=== PATIENT | female | born 1995 | race Asian ===

== ENCOUNTER → 2017-07-23 | Outpatient (CLI) | payer BC | END | disposition home or self-care (01) | LOC: C.LABSPEC 13:04 | PROVIDERS: ATTEND Obstetrics & Gynecology | DX: Z11.8 Encounter for screening for other infectious and parasitic diseases (principal); Z11.3 Encounter for screening for infections with a predominantly sexual mode of transmission ==

== ENCOUNTER → 2017-07-23 | Outpatient (CLI) | payer BC | END | disposition home or self-care (01) | LOC: C.PAPS 13:49 | PROVIDERS: ATTEND Obstetrics & Gynecology | DX: Z01.419 Encounter for gynecological examination (general) (routine) without abnormal findings (principal) ==

== ENCOUNTER 2018-02-22 11:20 | Emergency (ER) | payer BC ==
[~2018-02-22] VITALS: Ht 152.4 cm; Wt 52.8 kg
[2018-02-22 11:30] VITALS: TEMP 36.8; Ht 152.4 cm; Wt 52.8 kg
[2018-02-22] MEDS ORDERED: SODIUM CHLORIDE 0.9% 1000ML 1,000 ML IV STA (11:47)
[2018-02-22] MEDS ORDERED: ONDANSETRON INJ 2 MG/ML 2 ML VIAL IV STA (11:47)
--- NOTE | 2018-02-22 11:59 | EMERGENCY ROOM VISIT NOTE ---
History First contact with patient: 11:33 Chief Complaint: ABDOMINAL PAIN Stated Complaint: LOWER ABD PAIN Nursing Triage Summary: PAtient amblatory to triage. "I have been having pretty bad abdominal pain for the last three days" The patient radiates across lower abdomen to back. Patient states she is voiding more often. Patient complains of slight nausea and "I get hot really quickly". History of Present Illness The patient is a 22 year old female who presents to the Emergency Room with complaints of progressively worsening, constant cramping discomfort in the lower abdomen. The patient now reports that it hurts when she bends over or walks. She reports that the pain does go somewhat into the lower back region. The patient reports a prior history of ovarian cysts, but reports that this does feel somewhat different. She denies history of kidney stones or other GI disease. She has had increased urinary frequency without dysuria or hematuria. She denies any significant prior history of urinary tract infection or kidney infection. The patient has had mild nausea without vomiting. She denies fevers or chills. The patient denies , and is currently taking oral contraceptives. She rates her discomfort a 5 out of 10. Review of Systems HEENT: Denies dizziness, visual problems, hearing loss, tinnitus. Denies difficulty swallowing or oral lesions. PULMONARY: Denies cough, shortness of breath, sputum production or hemoptysis. CARDIOVASCULAR: Denies chest pain, palpitations, dyspnea on exertion, orthopnea or peripheral edema. GASTROINTESTINAL: Denies diarrhea, constipation or vomiting, otherwise see HPI. GENITOURINARY: Reports increased urinary frequency, but denies dysuria, hematuria, urgency or nocturia. NEUROLOGIC: Denies history of epilepsy, CVA, TIA or chronic headaches. MUSCULOSKELETAL: Denies history of joint tenderness/swelling. SKIN: Denies rashes or lesions. PSYCHIATRIC: Denies history of depression or mental illness. ENDOCRINE: Denies history of diabetes or thyroid disorders. Past Medical/Surgical History Medical Problems: (1) No significant past medical history Surgical Problems: (1) No history of previous surgery Family History Unremarkable Social History Smoking Status: Never Smoker Alcohol Use: occasionally Marital Status: single Occupation Status: employed Current/Historical Medications Scheduled Ciprofloxacin Hcl (Cipro), 500 MG PO BID Etonogestrel/Ethinyl Estradiol (Nuvaring), 1 EA VAGRING MONTHLY Physical Exam Vital Signs Date Time Temp Pulse Resp B/P (MAP) Pulse Ox O2 Delivery O2 Flow Rate FiO2 02/22/18 16:35 95 20 117/76 97 02/22/18 16:01 84 22 132/84 100 Room Air 02/22/18 15:38 110 02/22/18 15:31 98 Room Air 02/22/18 15:31 98 Room Air 02/22/18 15:19 108 18 139/96 98 Room Air 02/22/18 14:31 92 18 118/65 99 Room Air 02/22/18 12:40 83 16 121/81 98 Room Air 02/22/18 11:30 36.8 84 16 134/86 99 Room Air Physical Exam CONSTITUTIONAL: Healthy and well nourished. Alert and oriented X 3 with positive affect. Patient does not appear acutely ill or toxic, and appears in mild discomfort. HEENT: Normocephalic, atraumatic. Pupils equal, round and reactive. No scleral icterus or conjunctival injection/pallor. NECK: Full active range of motion without discomfort. RESPIRATORY: Clear to auscultation bilaterally with no wheezing, crackles, rhonchi or stridor. CARDIOVASCULAR: Regular rate and rhythm with no murmurs, rubs or gallops. GASTROINTESTINAL: Bowel sounds present in all quadrants. Examination shows notable suprapubic and McBurney's point tenderness. Mildly positive Rovsing sign. Negative heel tap. Negative CVA tenderness. No abdominal rigidity, guarding or rebound. MUSCULOSKELETAL: Full range of motion of all joints without discomfort. INTEGUMENTARY: No rash or other significant dermatologic conditions noted. HEMATOLOGIC: No ecchymosis or petechiae noted. NEUROLOGIC: No focal neurologic deficits noted. Medical Decision & Procedures ER Provider Diagnostic Interpretation: Pelvic ultrasound does not show any evidence for ovarian cyst or other concerning pelvic masses. Radiologist report is as follows: PELVIC COMPLETE NON OB CLINICAL HISTORY: 22 years-old Female presenting with LOWER ABDOMINAL PAIN, , on contraception. TECHNIQUE: Real-time grayscale and color and spectral Doppler ultrasound imaging of the pelvis was performed using a transabdominal probe. COMPARISON: None. FINDINGS: Uterus: Normal. Anteverted. The uterus measures 8.3 x 3.1 x 4.5 cm. Endometrial stripe measures 5 mm in thickness. Endometrium normal-appearing. Cervix normal. Right adnexa: Right ovary normal. Right ovary measures 1.9 x 2.1 x 1.4 cm. Normal color Doppler flow and arterial and venous waveforms within the ovarian parenchyma. Left adnexa: Left ovary normal. Left ovary measures 2.4 x 2.7 x 1.6 cm. Normal color Doppler flow and arterial and venous waveforms within the ovarian parenchyma. Other: No free fluid. IMPRESSION: No significant abnormality identified within the pelvis. Ultrasound of the appendix was unable to visualize the appendix. Radiologist report is as follows: APPENDIX ULTRASOUND CLINICAL HISTORY: 22 years-old Female presenting with LOWER ABDOMINAL PAIN, right lower quadrant pain for 3 days. TECHNIQUE: Real-time grayscale and limited color Doppler ultrasound imaging of the right lower quadrant was performed to evaluate the appendix. COMPARISON: None. FINDINGS: Appendix not visualized. No free fluid or hyperechogenic fat to suggest secondary signs of inflammation. IMPRESSION: Appendix not visualized. This does not exclude the diagnosis of appendicitis. Enhanced CT of the abdomen and pelvis show any acute appendicitis or bowel obstruction. Patient does have thickening of the bladder wall and ureter, suggestive of pyelitis/cystitis. Radiologist report is as follows: ABDOMEN AND PELVIS CT WITH IV AND ORAL CONTRAST CT DOSE: 283.23 mGycm HISTORY: LOWER ABDOMINAL PAIN TECHNIQUE: Multiaxial CT images of the abdomen and pelvis were performed following the use of intravenous and oral contrast. A dose lowering technique was utilized adhering to the principles of ALARA. COMPARISON STUDY: None. FINDINGS: The lung bases are clear. No pneumoperitoneum. No pneumatosis. No fractures within the visualized osseous structures. The liver, gallbladder, spleen, pancreas, and adrenal glands are unremarkable. The right kidney enhances normally. A 4 mm hypodense lesion within the left kidney is too small to characterize. No hydronephrosis. No retroperitoneal lymphadenopathy. The uterus and ovaries are unremarkable. No significant pelvic free fluid. Mild bladder wall thickening. A ring-shaped object in the upper vagina favors a contraceptive device. No bowel wall thickening or obstruction. Normal appendix. There is also mild urothelial thickening within the ureters. IMPRESSION: 1. Mild thickening of the bladder wall as well as mild urothelial thickening within the ureters. This favors a cystitis/pyelitis. Recommend correlation with urinalysis. 2. No bowel wall thickening or obstruction. 3. Normal appendix. Laboratory Results 02/22/18 11:55 Red Blood Count 5.05, Mean Corpuscular Volume 90.9, Mean Corpuscular Hemoglobin 33.3, Mean Corpuscular Hemoglobin Concent 36.6, Mean Platelet Volume 10.1, Neutrophils (%) (Auto) 75.0, Lymphocytes (%) (Auto) 15.5, Monocytes (%) (Auto) 6.1, Eosinophils (%) (Auto) 2.8, Basophils (%) (Auto) 0.4, Neutrophils # (Auto) 7.23, Lymphocytes # (Auto) 1.49, Monocytes # (Auto) 0.59, Eosinophils # (Auto) 0.27, Basophils # (Auto) 0.04 02/22/18 11:55 Test 02/22/18 11:50 02/22/18 11:55 Urine Color YELLOW Urine Appearance CLOUDY (CLEAR) Urine pH 6.5 (4.5-7.5) Urine Specific Coolin 1.012 (1.000-1.030) Urine Protein NEG (NEG) Urine Glucose (UA) NEG (NEG) Urine Ketones NEG (NEG) Urine Occult Blood 1+ (NEG) Urine Nitrite NEG (NEG) Urine Bilirubin NEG (NEG) Urine Urobilinogen NEG (NEG) Urine Leukocyte Esterase LARGE (NEG) Urine WBC (Auto) >30 /hpf (0-5) Urine RBC (Auto) 5-10 /hpf (0-4) Urine Hyaline Casts (Auto) 5-10 /lpf (0-5) Urine Epithelial Cells (Auto) >30 /lpf (0-5) Urine Bacteria (Auto) 2+ (NEG) Urine Test NEG (NEG) White Blood Count 9.64 K/uL (4.8-10.8) Red Blood Count 5.05 M/uL (4.2-5.4) Hemoglobin 16.8 g/dL (12.0-16.0) Hematocrit 45.9 % (37-47) Mean Corpuscular Volume 90.9 fL (80-100) Mean Corpuscular Hemoglobin 33.3 pg (25-34) Mean Corpuscular Hemoglobin Concent 36.6 g/dl (32-36) Platelet Count 244 K/uL (130-400) Mean Platelet Volume 10.1 fL (7.4-10.4) Neutrophils (%) (Auto) 75.0 % Lymphocytes (%) (Auto) 15.5 % Monocytes (%) (Auto) 6.1 % Eosinophils (%) (Auto) 2.8 % Basophils (%) (Auto) 0.4 % Neutrophils # (Auto) 7.23 K/uL (1.4-6.5) Lymphocytes # (Auto) 1.49 K/uL (1.2-3.4) Monocytes # (Auto) 0.59 K/uL (0.11-0.59) Eosinophils # (Auto) 0.27 K/uL (0-0.5) Basophils # (Auto) 0.04 K/uL (0-0.2) RDW Standard Deviation 40.8 fL (36.4-46.3) RDW Coefficient of Variation 12.4 % (11.5-14.5) Immature Granulocyte % (Auto) 0.2 % Immature Granulocyte # (Auto) 0.02 K/uL (0.00-0.02) Anion Gap 9.0 mmol/L (3-11) Est Creatinine Clear Calc Drug Dose 62.3 ml/min Estimated GFR () 91.3 Estimated GFR (Non- 78.8 BUN/Creatinine Ratio 10.6 (10-20) Calcium Level 9.4 mg/dl (8.5-10.1) Total Bilirubin 0.7 mg/dl (0.2-1) Direct Bilirubin 0.2 mg/dl (0-0.2) Aspartate Amino Transf (AST/SGOT) 14 U/L (15-37) Alanine Aminotransferase (ALT/SGPT) 27 U/L (12-78) Alkaline Phosphatase 63 U/L (45-117) Total Protein 8.0 gm/dl (6.4-8.2) Albumin 4.1 gm/dl (3.4-5.0) Lipase 159 U/L (73-393) The above labs were reviewed. CBC, partial renal profile, LFTs and lipase are normal. Urine is negative. Urine collection was contaminated. Urine culture is pending. Medications Administered Medications (Trade) Dose Ordered Sig/Karla Route Start Time Stop Time Status Last Admin Dose Admin Sodium Chloride 1,000 ml @ 999 mls/hr Q1H1M STAT IV 02/22/18 11:47 02/22/18 12:47 DC 02/22/18 12:38 999 MLS/HR Ondansetron HCl (Zofran Inj) 4 mg NOW STAT IV 02/22/18 11:47 02/22/18 12:10 DC 02/22/18 12:38 4 MG Methylprednisolone Sodium Succinate (Solu-Medrol IV) 125 mg NOW STAT IV 02/22/18 15:18 02/22/18 15:20 DC 02/22/18 15:24 125 MG Diphenhydramine HCl (Benadryl Inj) 50 mg NOW STAT IV 02/22/18 15:18 02/22/18 15:20 DC 02/22/18 15:23 50 MG Procedure 1. IV hydration: The patient was administered a normal saline 2. IV medications: Zofran 4 mg IVP. The patient ultimately required additional Benadryl 50 mg and Solu-Medrol 125 mg IVP after having an adverse reaction to IVP dye. ED Course Patient history and physical exam were performed. Nurse's notes were reviewed. Vital signs were reviewed and normal. IV access was established, and labs were drawn. The patient was hydrated with normal saline, and was administered IV Zofran for nausea. Labs were reviewed to show no significant abdomen. Urinalysis was contaminated. Urine is negative. The patient tolerated her oral prep well. Pelvic ultrasound was performed and was unremarkable. Appendix ultrasound could not visualize the appendix. Enhanced CT of the abdomen and pelvis shows thickening of the bladder wall and distal ureter, concerning for cystitis/pyelitis. Immediately after her CT scan was completed, the patient started to complain of a hot flushing sensation, chest tightness and difficulty breathing. The patient was immediately brought back to her room. At that point, phototypesetting equipment monitor was applied. An ECG was performed, showing a sinus tachycardia of 115 bpm. When I came into evaluate the patient, her heart rate was in the 140s. Her blood pressure was normal. The patient was immediately given IV Benadryl and Solu-Medrol. The patient became nauseated. I was with the patient for the next 18 minutes with close observation. The patient's symptoms eventually subsided with her heart rate returning to the mid 70s. She remained normotensive. Review of the phototypesetting equipment monitor did not show any other arrhythmias. Findings were discussed with the patient. I recommended antibiotic treatment for cystitis/pyelitis. The patient refused any IV antibiotics. She will be treated with Cipro 500 mg twice daily times 10 days. She was instructed to return to the emergency department for any worsening symptoms, including chest pain, shortness of breath, lip/tongue/throat swelling or worsening pelvic pain, back pain, vomiting or fever. The patient was happy with plan of care, and voiced understanding of all discharge instructions. Medical Decision Workup today is suggestive of acute cystitis/pyelitis. Ultrasound did not show any acute intrapelvic etiologies such as ovarian torsion or ovarian cyst. CT scan does not show evidence for acute appendicitis, obstruction, mesenteric adenitis, colitis or other acute intra-abdominal etiologies. Unfortunately patient had a rather significant reaction to her IV dye contrast, but did resolve with administration of Benadryl and site Medrol. She had no adverse cardiac events while in the emergency department. Medication Reconcilliation Current Medication List: was personally reviewed by me Blood Pressure Screening Patient's blood pressure: Normal blood pressure Impression Primary Impression: Cystitis Additional Impression: Adverse reaction to IVP dye Critical Care I have personally spent greater than 30 minutes of critical care time in the direct management of this patient. As indicated in the previous section, I did spend a significant amount of time bedside with the patient until her symptoms resolved. The patient was tachycardic in the 140s. She remained hemodynamically stable and had no episodes of hypoxia. This period of time includes bedside care, interpretation of diagnostic studies, and testing, discussion with consultants, patient, and family members, and other required patient management activities. This 30 minutes is in excess of all separately billable procedures. Departure Information Prescriptions Ciprofloxacin Hcl (CIPRO) 500 Mg Tab 500 MG PO BID for 10 Days, #20 TAB Prov: Leeroy Ordoñez PA 02/22/18 Referrals No Doctor, Assigned (PCP) Patient Instructions My [facility] Problem Qualifiers
[2018-02-22 12:06] LABS: BASO % 0.4 %; BASO ABS # 0.04 K/uL (0-0.2); EOS % 2.8 %; EOS ABS # 0.27 K/uL (0-0.5); HEMATOCRIT 45.9 % (37-47); HEMOGLOBIN 16.8 g/dL (12.0-16.0); IG# 0.02 K/uL (0.00-0.02); LYMPH % 15.5 %; LYMPH ABS # 1.49 K/uL (1.2-3.4); MEAN CELL VOLUME 90.9 fL (80-100); MEAN CORPUSCULAR HEMOGLOBIN 33.3 pg (25-34); MEAN CORPUSCULAR HGB CONC 36.6 g/dl (32-36); MEAN PLATELET VOLUME 10.1 fL (7.4-10.4); MONO % 6.1 %; MONO ABS # 0.59 K/uL (0.11-0.59); NEUT ABS # 7.23 K/uL (1.4-6.5); PLATELET COUNT 244 K/uL (130-400); RED CELL DISTRIBUTION WIDTH CV 12.4 % (11.5-14.5); RED CELL DISTRIBUTION WIDTH SD 40.8 fL (36.4-46.3); WHITE BLOOD COUNT 9.64 K/uL (4.8-10.8)
[2018-02-22 12:25] LABS: ALBUMIN 4.1 gm/dl (3.4-5.0); CALCIUM 9.4 mg/dl (8.5-10.1); POTASSIUM 3.8 mmol/L (3.5-5.1)
[2018-02-22] MEDS ORDERED: ETONMIS VAGRING (12:38)
--- NOTE | 2018-02-22 13:50 | DIAGNOSTIC IMAGING REPORT ---
APPENDIX ULTRASOUND CLINICAL HISTORY: 22 years-old Female presenting with LOWER ABDOMINAL PAIN, right lower quadrant pain for 3 days. TECHNIQUE: Real-time grayscale and limited color Doppler ultrasound imaging of the right lower quadrant was performed to evaluate the appendix. COMPARISON: None. FINDINGS: Appendix not visualized. No free fluid or hyperechogenic fat to suggest secondary signs of inflammation. IMPRESSION: Appendix not visualized. This does not exclude the diagnosis of appendicitis. Electronically signed by: Live Menon M.D. 02/22/2018 1:48 PM Dictated Date/Time: 02/22/2018 1:48 PM
--- NOTE | 2018-02-22 13:54 | DIAGNOSTIC IMAGING REPORT ---
PELVIC COMPLETE NON OB CLINICAL HISTORY: 22 years-old Female presenting with LOWER ABDOMINAL PAIN, , on contraception. TECHNIQUE: Real-time grayscale and color and spectral Doppler ultrasound imaging of the pelvis was performed using a transabdominal probe. COMPARISON: None. FINDINGS: Uterus: Normal. Anteverted. The uterus measures 8.3 x 3.1 x 4.5 cm. Endometrial stripe measures 5 mm in thickness. Endometrium normal-appearing. Cervix normal. Right adnexa: Right ovary normal. Right ovary measures 1.9 x 2.1 x 1.4 cm. Normal color Doppler flow and arterial and venous waveforms within the ovarian parenchyma. Left adnexa: Left ovary normal. Left ovary measures 2.4 x 2.7 x 1.6 cm. Normal color Doppler flow and arterial and venous waveforms within the ovarian parenchyma. Other: No free fluid. IMPRESSION: No significant abnormality identified within the pelvis. Electronically signed by: Live Menon M.D. 02/22/2018 1:52 PM Dictated Date/Time: 02/22/2018 1:49 PM
[2018-02-22] MEDS ORDERED: OPTIRAY 320 IV PRN (14:30)
[2018-02-22] MEDS ORDERED: DiphenhydrAMINE HCL 50 MG/ML VIAL IV STA (15:18)
[2018-02-22] MEDS ORDERED: METHYLPREDNISOLONE 125 MG VIAL IV STA (15:18)
[2018-02-22] MEDS ORDERED: METHYLPREDNISOLONE 125 MG VIAL ONE (15:20)
[2018-02-22] MEDS ORDERED: DiphenhydrAMINE HCL 50 MG/ML VIAL ONE (15:20)
[2018-02-22 15:31] VITALS: O2SAT 98
--- NOTE | 2018-02-22 15:31 | DIAGNOSTIC IMAGING REPORT ---
ABDOMEN AND PELVIS CT WITH IV AND ORAL CONTRAST CT DOSE: 283.23 mGycm HISTORY: LOWER ABDOMINAL PAIN TECHNIQUE: Multiaxial CT images of the abdomen and pelvis were performed following the use of intravenous and oral contrast. A dose lowering technique was utilized adhering to the principles of ALARA. COMPARISON STUDY: None. FINDINGS: The lung bases are clear. No pneumoperitoneum. No pneumatosis. No fractures within the visualized osseous structures. The liver, gallbladder, spleen, pancreas, and adrenal glands are unremarkable. The right kidney enhances normally. A 4 mm hypodense lesion within the left kidney is too small to characterize. No hydronephrosis. No retroperitoneal lymphadenopathy. The uterus and ovaries are unremarkable. No significant pelvic free fluid. Mild bladder wall thickening. A ring-shaped object in the upper vagina favors a contraceptive device. No bowel wall thickening or obstruction. Normal appendix. There is also mild urothelial thickening within the ureters. IMPRESSION: 1. Mild thickening of the bladder wall as well as mild urothelial thickening within the ureters. This favors a cystitis/pyelitis. Recommend correlation with urinalysis. 2. No bowel wall thickening or obstruction. 3. Normal appendix. Electronically signed by: Ricardo Disla M.D. 02/22/2018 3:30 PM Dictated Date/Time: 02/22/2018 3:19 PM
[2018-02-22] MEDS ORDERED: CIPR-255 PO (16:17)
[2018-02-22 16:35] VITALS: BP 117/76; PULSE 95; O2SAT 97
[2018-02-24] MEDS ORDERED: TRAM-10 PO (13:38)
[2018-02-24] MEDS ORDERED: SULF800T23 PO (13:38)
--- NOTE | 2018-02-24 13:44 | Pharmacy Progress Note ---
ED Pharmacist Culture FollowUp Date of Service: Feb 24, 2018. Patient's urine culture growing staph saprophyticus salazar-sensitive. Patient was prescribed ciprofloxacin, recommend change to Bactrim DS BID. Discussed with Tiago EVANGELISTA who had just gotten done speaking with the patient. He had told her that he was going to prescribe a new antibiotic. He electronically sent prescription for Bactrim DS BID x 7 days.
== END 2018-02-22 16:38 | disposition home or self-care (01) ==
LOC: C.EDB 11:21
DX: N30.90 Cystitis, unspecified without hematuria (principal); T50.8X5A Adverse effect of diagnostic agents, initial encounter